=== PATIENT | female | born 1970 | race Caucasian/White ===

== ENCOUNTER → 2016-08-04 | Outpatient (CLI) | payer OTHER ==
--- NOTE | 2016-08-04 17:24 | MA ---
Screening Digital Mammogram Clinical Indications: Routine screening. Technique: Standard cephalocaudal and mediolateral oblique projections are obtained. This examinatio n is processed by the [facility] computer aided detection system. Comparison: August 07, 2014; November 29, 2012; February 16, 2010. Breast density: C; The breasts are heterogeneously dense, which may obscure small masses. Findings: CAD was reviewed. There are no new masses, new clusters of microcalcifications, or significant axillary lymphadenopathy . Impression: Negative mammogram. BI-RADS 1. Recommendation: Routine screening mammogram is recommended in one year. Dense mammographic pattern limits the sensitivity of mammography in this patient. If there is a clini jax palpable abnormality, recommend additional imaging with ultrasound if clinically indicated. [facility] will send a result letter to the patient. Negative mammography should not preclude additional workup of a clinically suspicious finding. The patient's information is entered into a reminder system with a target due date for her next mammo gram.
== END ==
LOC: BRMIMAGING 13:18
DX: Z12.31 Encounter for screening mammogram for malignant neoplasm of breast (principal)
CPT/HCPCS: G0202